=== PATIENT | male | born 1980 | race Two or more races ===

== ENCOUNTER 2019-11-29 07:40 | Outpatient (REF) | payer BC, SELFPAY ==
[2019-11-29 13:55] LABS: Anion Gap 8.7 mmol/L (3-11); BUN 20 mg/dL (7-18); CO2 27.3 mmol/L (21.0-32.0); Calculated LDL 172 mg/dL (<100); Chloride 104 mmol/L (98-107); Cholesterol 242 mg/dL (<200); Glucose 110 mg/dL (74-106); HDL Cholesterol 40 mg/dL (40-60); Potassium 4.7 mmol/L (3.5-5.1); Sodium 140 mmol/L (136-145); Triglyceride 150 mg/dL (<150)
== END 2019-11-29 08:00 ==
LOC: NCHCN 07:40
PROVIDERS: PCP Family Medicine; Visit Provider Nurse Practitioner Family
DX: F32.9 Major depressive disorder, single episode, unspecified (principal); R73.9 Hyperglycemia, unspecified; E78.5 Hyperlipidemia, unspecified
CPT/HCPCS: 80048; 80061

== ENCOUNTER 2020-12-04 08:15 | Outpatient (REF) | payer BC, SELFPAY ==
[2020-12-04 12:57] LABS: Hemoglobin A1C 5.5 % (<5.7)
[2020-12-04 13:05] LABS: BUN 17 mg/dL (7-18); Calcium 8.5 mg/dL (8.5-10.1); Calculated LDL 149 mg/dL (<100); Chloride 102 mmol/L (98-107); Cholesterol 237 mg/dL (<200); Glucose 103 mg/dL (74-106); HDL Cholesterol 34 mg/dL (40-60); Potassium 4.3 mmol/L (3.5-5.1); Sodium 137 mmol/L (136-145); Triglyceride 274 mg/dL (<150)
== END 2020-12-04 08:16 | disposition home or self-care (01) ==
LOC: NCHCN 08:15
PROVIDERS: PCP Family Medicine; Visit Provider Physician Assistant
DX: Z00.00 Encounter for general adult medical examination without abnormal findings (principal); R73.03 Prediabetes; E78.5 Hyperlipidemia, unspecified
CPT/HCPCS: 80048; 80061; 83036

== ENCOUNTER 2021-12-17 16:33 | Outpatient (REF) | payer BC, SELFPAY ==
[2021-12-17 15:30] LABS: Hemoglobin A1C 5.5 % (<5.7)
[2021-12-17 15:36] LABS: Anion Gap 10.8 mmol/L (3-11); BUN 13 mg/dL (7-18); CO2 25.2 mmol/L (21.0-32.0); CREATININE 1.1 mg/dL (0.70-1.30); Calculated LDL 217 mg/dL (<100); Chloride 102 mmol/L (98-107); Cholesterol 286 mg/dL (<200); Glucose 108 mg/dL (74-106); HDL Cholesterol 42 mg/dL (40-60); Potassium 4.3 mmol/L (3.5-5.1); Sodium 138 mmol/L (136-145); Triglyceride 138 mg/dL (<150)
== END 2021-12-17 16:34 | disposition home or self-care (01) ==
LOC: NCHCN 16:33
PROVIDERS: PCP Family Medicine; Visit Provider Physician Assistant
DX: Z00.00 Encounter for general adult medical examination without abnormal findings (principal); R73.03 Prediabetes; E78.5 Hyperlipidemia, unspecified
CPT/HCPCS: 80048; 80061; 83036

== ENCOUNTER 2022-06-20 13:06 | Outpatient (REF) | payer OTHER, SELFPAY ==
[2022-06-20 15:15] LABS: Calculated LDL 98 mg/dL (<100); Cholesterol 157 mg/dL (<200); HDL Cholesterol 41 mg/dL (40-60); Triglyceride 93 mg/dL (<150)
[2022-06-20 15:42] LABS: Hemoglobin A1C 5.5 % (<5.7)
== END 2022-06-20 13:07 | disposition home or self-care (01) ==
LOC: NCHCN 13:06
PROVIDERS: PCP Family Medicine; Visit Provider Physician Assistant
DX: E78.5 Hyperlipidemia, unspecified (principal); R73.03 Prediabetes
CPT/HCPCS: 80061; 83036

== ENCOUNTER 2022-12-23 15:06 | Outpatient (REF) | payer OTHER, SELFPAY ==
[2022-12-23 17:20] LABS: ALT 94 U/L (16-63); AST 42 U/L (15-37); Albumin 4.2 g/dL (3.4-5.0); Alkaline Phosphatase 59 U/L (46-116); Anion Gap 6.6 mmol/L (3-11); BUN 13 mg/dL (7-18); Bilirubin, Total 0.6 mg/dL (0.2-1.0); CO2 29.4 mmol/L (21.0-32.0); CREATININE 1.1 mg/dL (0.70-1.30); Calcium 8.8 mg/dL (8.5-10.1); Calculated LDL 130 mg/dL (<100); Chloride 102 mmol/L (98-107); Cholesterol 201 mg/dL (<200); Estimated GFR 85.42 (mL/min/1.73m2); Glucose 104 mg/dL (74-106); HDL Cholesterol 43 mg/dL (40-60); Potassium 4.2 mmol/L (3.5-5.1); Sodium 138 mmol/L (136-145); Total Protein 7.6 g/dL (6.4-8.2); Triglyceride 142 mg/dL (<150)
== END 2022-12-23 15:07 | disposition home or self-care (01) ==
LOC: NCHCN 15:06
PROVIDERS: PCP Family Medicine; Visit Provider Physician Assistant
DX: E78.5 Hyperlipidemia, unspecified (principal)
CPT/HCPCS: 80053; 80061

== ENCOUNTER 2023-08-04 09:10 | Outpatient (REF) | payer OTHER, SELFPAY ==
[2023-08-04 15:35] LABS: ALT 57 U/L (16-63); AST 20 U/L (15-37); Albumin 3.9 g/dL (3.4-5.0); Alkaline Phosphatase 63 U/L (46-116); Anion Gap 6.3 mmol/L (3-11); BUN 13 mg/dL (7-18); Bilirubin, Total 0.5 mg/dL (0.2-1.0); CO2 29.7 mmol/L (21.0-32.0); Calcium 8.6 mg/dL (8.5-10.1); Calculated LDL 109 mg/dL (<100); Chloride 102 mmol/L (98-107); Cholesterol 175 mg/dL (<200); Estimated GFR 95.77 (mL/min/1.73m2); Glucose 101 mg/dL (74-106); HDL Cholesterol 43 mg/dL (40-60); Sodium 138 mmol/L (136-145); Total Protein 7.2 g/dL (6.4-8.2); Triglyceride 119 mg/dL (<150)
== END 2023-08-04 09:11 | disposition home or self-care (01) ==
LOC: NCHCN 09:10
PROVIDERS: PCP Family Medicine; Visit Provider Physician Assistant
DX: E78.5 Hyperlipidemia, unspecified (principal); R73.03 Prediabetes
CPT/HCPCS: 80053; 80061

== ENCOUNTER 2024-04-16 03:27 | Outpatient (CLI) | payer OTHER, SELFPAY ==
[2024-04-16 08:27] LABS: ALT 83 U/L (16-63); AST 41 U/L (15-37); Albumin 4.1 g/dL (3.4-5.0); Alkaline Phosphatase 63 U/L (46-116); Anion Gap 8.1 mmol/L (3-11); BUN 19 mg/dL (7-18); Bilirubin, Total 0.51 mg/dL (0.2-1.0); CO2 28.9 mmol/L (21.0-32.0); CREATININE 1.3 mg/dL (0.70-1.30); Calcium 8.9 mg/dL (8.5-10.1); Calculated LDL 119 mg/dL (<100); Chloride 102 mmol/L (98-107); Cholesterol 201 mg/dL (<200); Estimated GFR 69.47 (mL/min/1.73m2); Glucose 102 mg/dL (74-106); HDL Cholesterol 46 mg/dL (40-60); Potassium 4.2 mmol/L (3.5-5.1); Sodium 139 mmol/L (136-145); Triglyceride 184 mg/dL (<150)
== END 2024-04-16 03:28 | disposition home or self-care (01) ==
LOC: LBO 03:27
PROVIDERS: PCP Family Medicine; Visit Provider Physician Assistant
DX: R03.0 Elevated blood-pressure reading, without diagnosis of hypertension (principal); E78.5 Hyperlipidemia, unspecified
CPT/HCPCS: 36415; 80053; 80061

== ENCOUNTER 2024-10-21 03:42 | Outpatient (CLI) | payer OTHER, SELFPAY ==
[2024-10-21 08:12] LABS: Hemoglobin A1C 5.5 % (<5.7)
[2024-10-21 08:35] LABS: ALT 59 U/L (16-63); AST 26 U/L (15-37); Albumin 3.9 g/dL (3.4-5.0); Alkaline Phosphatase 69 U/L (46-116); Anion Gap 8.3 mmol/L (3-11); BUN 14 mg/dL (7-18); Bilirubin, Total 0.5 mg/dL (0.2-1.0); CO2 28.7 mmol/L (21.0-32.0); Calcium 8.6 mg/dL (8.5-10.1); Calculated LDL 103 mg/dL (<100); Chloride 104 mmol/L (98-107); Cholesterol 173 mg/dL (<200); Estimated GFR 95.18 (mL/min/1.73m2); Glucose 105 mg/dL (74-106); HDL Cholesterol 47 mg/dL (>or=40); Sodium 141 mmol/L (136-145); Total Protein 7.5 g/dL (6.4-8.2); Triglyceride 117 mg/dL (<150)
== END 2024-10-21 03:43 | disposition home or self-care (01) ==
LOC: LBO 03:42
PROVIDERS: PCP Family Medicine; Visit Provider Physician Assistant
DX: R73.03 Prediabetes (principal); E78.5 Hyperlipidemia, unspecified
CPT/HCPCS: 36415; 80053; 80061; 83036

== ENCOUNTER 2025-02-19 08:53 | Emergency (ER) | payer OTHER, SELFPAY ==
[2025-02-19 08:57] VITALS: BP 162/94; PULSE 79; RESP 16; TEMP 36.3; O2SAT 98
[2025-02-19] MEDS: Lidocaine/Epinephri/Tetracaine Topical Gel 3 ML (09:15)
--- NOTE | 2025-02-19 09:16 | W.ED.GENAD ---
Discharge Plan Disposition Patient Disposition: Home Condition: Good Discharge Details Clinical Impression: Lacerations of multiple sites of right leg Primary Care Provider: Leon Mccrary ED Provider: Britt Yeager Home Meds and New Rx's Prescriptions: Continued atorvastatin 40 mg tablet 40 mg PO DAILY citalopram 40 mg tablet 40 mg PO DAILY Discharge Instructions Additional Instructions: Please return to care to have your sutures removed in 7 to 10 days. You may have this done at your primary care provider's office or here in the emergency department. Your last tetanus was in 2022. I recommend that you use a thin layer bacitracin and a nonstick bandage, followed by Zana wrap to help decrease flexion in your knee. Flexing your knee increases the pressure on the skin, and may cause the wound to come apart. You may use Tylenol or ibuprofen as needed for discomfort. Return to care immediately if you notice any signs of infection such as redness, swelling, pus drainage, foul odor, increasing pain, swelling. Referrals: Leon Mccrary [Primary Care Provider, Medicine] [facility] General Date/Time Provider Initiated Documentation: 02/19/25 08:55. HPI Narrative: Jose is a 44-year-old male presents to the emergency department today for evaluation of right leg lacerations. He reports that someone was working with a chainsaw cutting trees next to him when he turned off a chainsaw and brought it down, superficially cutting Tio's leg. He denies other injuries. Is able to fully extend and bend the leg. No distal numbness/tingling. Bleeding able to be well-controlled after gauze. He attempted to wipe away any debris's after incident. Denies significant past medical history. Physical exam remarkable for 3 linear superficial lacerations to the anterior aspect of the right leg just distal to the knee. Largest one is approximately 3 cm, slightly gaping. There are 2 other linear lacerations, 1 cm in length and 2 cm in length respectively. Full painless range of motion to leg, full flexion and extension. Distal sensation intact. Normal gait. I did review medical records on [facility], last tetanus 2022. History and presentation consistent with uncomplicated laceration. X-ray obtained to rule out foreign bodies. Presentation not consistent with extension into the joint, as lacerations are superficial. No red flags concerning for neurovascular compromise I independently interpreted the following tests: Right knee x-ray, no bony abnormality or foreign bodies noted. This was confirmed by radiology While in the emergency department, Tio received LET for topical anesthetic. Wound was explored to the base in a bloodless field (does not extend into muscle layer, is superficial), no foreign bodies visualized. Wound is extensively irrigated with tap water and antisepsis with chlorhexidine wound wash was performed. Wound was cleansed with 7 simple interrupted sutures and 3 horizontal mattress sutures, 4-0 Ethilon. Patient tolerated procedure well. A 6 inch Zana wrap was applied after wound was dressed. Reviewed discharge instructions with patient, including symptomatic management, suture removal, and red flags indicating need for return to emergency care Related Data Home Medications ?Medication ?Instructions ?Recorded ?Confirmed atorvastatin 40 mg tablet 40 mg PO DAILY 12/17/24 citalopram 40 mg tablet 40 mg PO DAILY 12/17/24 Allergies Allergy/AdvReac Type Severity Reaction Status Date / Time No Known Allergies Allergy Verified 12/17/24 08:14 General Stated Complaint: Laceration FADIA: 4 Exam Const General: cooperative, healthy appearing, comfortable, no acute distress, well developed and well groomed Resp Effort & Inspection: normal respiratory effort and able to speak in complete sentences Skin Rashes: no rashes Trauma: laceration (multiple, R knee) Other: Neuro General: patient alert, patient oriented x3, gait normal, tone normal, moves all extremities and no focal motor deficits Motor: muscle tone normal throughout and strength 5/5 throughout Sensory Exam: no sensory deficits noted Course Vital Signs Vital signs: Vital Signs Temperature 36.3 C L 02/19/25 08:57 Pulse 79 02/19/25 08:57 Respiratory Rate 16 02/19/25 08:57 Blood Pressure 162/94 H 02/19/25 08:57 Pulse Oximetry 98 02/19/25 08:57 Temperature 36.3 C L 02/19/25 08:57 Temperature Source Tympanic 02/19/25 08:57 Pulse 79 02/19/25 08:57 Respiratory Rate 16 02/19/25 08:57 Blood Pressure 162/94 H 02/19/25 08:57 Blood Pressure Position Sitting 02/19/25 08:57 Pulse Oximetry 98 02/19/25 08:57 Oxygen Delivery Method Room Air 02/19/25 08:57 Oxygen Flow Rate 0 02/19/25 08:57 Procedure Laceration Laceration 1: Patient Consented: Verbally Site: lower extremity Side (If applicable): right Description: linear Depth: simple, single layer Local anesthetic: Lidocaine 2% and with Epi Pre-repair:: wound explored, irrigated extensively and deep structures intact Skin layer closed with: nylon Number of sutures:: 10 Technique: horizontal mattress (3 (in 3 cm laceration)) and simple, interrupted (3 in 3 cm laceration, 3 in 2 cm laceration, 1 in 1 cm laceration) Procedure Description/Note: edges well approximated Medical Decision Making Imaging Data Radiologic Study: Radiologist's impression: Exam(s) XR KNEE RT 4V AP,LAT,RACHEL,PAT EXAM: XR KNEE RT 4V AP,LAT,RACHEL,PAT CLINICAL HISTORY: chainsaw, laceration, r/o FB. TECHNIQUE: 2D digital imaging was performed of the right knee. Five views obtained. Merchant, AP, lateral and PA tunnel views were obtained. COMPARISON: No exams were available for comparison FINDINGS: BONES: No acute fracture is present. No bony destructive lesion is seen. JOINTS: The knee is normally aligned. No joint effusion is seen. SOFT TISSUE: There is a small amount of air in the soft tissues lateral to the joint. No radiopaque foreign bodies are present. IMPRESSION: 1. There is no acute fracture or dislocation. There is no radiopaque foreign body present. 2. Small amount of air in the soft tissues lateral to the joint. PFSH All Active Problems (Updated 02/19/25 @ 10:29 by Britt Rodriguez) Lacerations of multiple sites of right leg (Acute) Hyperlipidemia (Acute) Vitamin D deficiency (Acute) Medical History (Updated 02/19/25 @ 10:29 by Britt Rodriguez) Elevated blood pressure reading Prediabetes Major depression, single episode Social History Smoking/Tobacco Use Status: Never Smoking risk assessment performed?: Yes Alcohol Intake: current Alcohol Intake frequency: 0-2 drinks per day Alcohol type: beer Drug use: Never Substance use type: does not use
--- NOTE | 2025-02-19 09:58 | DI.RAD_ITS ---
Exam(s) XR KNEE RT 4V AP,LAT,RACHEL,PAT EXAM: XR KNEE RT 4V AP,LAT,RACHEL,PAT CLINICAL HISTORY: chainsaw, laceration, r/o FB. TECHNIQUE: 2D digital imaging was performed of the right knee. Five views obtained. Merchant, AP, lateral and PA tunnel views were obtained. COMPARISON: No exams were available for comparison FINDINGS: BONES: No acute fracture is present. No bony destructive lesion is seen. JOINTS: The knee is normally aligned. No joint effusion is seen. SOFT TISSUE: There is a small amount of air in the soft tissues lateral to the joint. No radiopaque foreign bodies are present. IMPRESSION: 1. There is no acute fracture or dislocation. There is no radiopaque foreign body present. 2. Small amount of air in the soft tissues lateral to the joint. DATA REPOSITORY: RADIATION DOSE DELIVERED:
== END 2025-02-19 10:34 | disposition home or self-care (01) ==
LOC: ER 10:39
PROVIDERS: Emergency Provider Nurse Practitioner Family; PCP Physician Assistant
DX: S81.811A Laceration without foreign body, right lower leg, initial encounter (principal); W31.2XXA Contact with powered woodworking and forming machines, initial encounter; Y99.0 Civilian activity done for income or pay
CPT/HCPCS: 99283 ×2; 12002; 73564; J2004

== ENCOUNTER 2025-02-28 13:04 | Emergency (ER) | payer SELFPAY ==
[2025-02-28 13:17] VITALS: BP 147/101; PULSE 77; RESP 15; TEMP 36.6; O2SAT 96
--- NOTE | 2025-02-28 14:13 | W.ED.GENAD ---
Discharge Plan Disposition Patient Disposition: Home Condition: Stable Discharge Details Clinical Impression: Visit for suture removal Primary Care Provider: Leon Mccrary ED Provider: Dimas Mann Home Meds and New Rx's Prescriptions: No Action bisacodyl [Dulcolax (bisacodyl)] 5 mg tablet,delayed release (DR/EC) 5 mg PO ONCE Qty: 4 0RF Rx Instructions: Take per colonoscopy instructions provided by ordering providers office polyethylene glycol 3350 17 gram/dose powder 17 g PO ONCE Qty: 238 0RF Rx Instructions: Take per colonoscopy instructions provided by ordering providers office atorvastatin 40 mg tablet 40 mg PO DAILY citalopram 40 mg tablet 40 mg PO DAILY Discharge Instructions Instructions: Stitches Removal Additional Instructions: Medication reconciliation was not performed today. Please take your medications as prescribed. Keep wound protected. Monitor for signs of infection including increased warmth, swelling, drainage, pain. Seek care immediately for any worsening or new concerning symptoms. Discharge Data Discharge Date/Time-TO BE ENTERED AT DEPARTURE: 02/28/25 14:21 HPI General Mode of arrival: ambulatory. Date/Time Provider Initiated Documentation: 02/28/25 13:22. Limitations to Documentation: no limitations. Information obtained by: patient. HPI Narrative: Patient here for suture removal. Sutures were placed in the emergency department on 02/19/2025. Wound has been healing well without complication. Patient has no other concerns. Related Data Home Medications ?Medication ?Instructions ?Recorded ?Confirmed atorvastatin 40 mg tablet 40 mg PO DAILY 12/17/24 02/28/25 citalopram 40 mg tablet 40 mg PO DAILY 12/17/24 02/28/25 bisacodyl 5 mg tablet,delayed 5 mg PO ONCE #4 tabs 02/27/25 02/28/25 release (Dulcolax (bisacodyl)) polyethylene glycol 3350 17 17 g PO ONCE #238 grams 02/27/25 02/28/25 gram/dose oral powder Previous Rx's ?Medication ?Instructions ?Recorded bisacodyl 5 mg tablet,delayed 5 mg PO ONCE #4 tabs 02/27/25 release (Dulcolax (bisacodyl)) polyethylene glycol 3350 17 17 g PO ONCE #238 grams 02/27/25 gram/dose oral powder Allergies Allergy/AdvReac Type Severity Reaction Status Date / Time No Known Allergies Allergy Verified 12/17/24 08:14 General Stated Complaint: SutureRem FADIA: 4 Exam Extrem Other: Right lower extremity wounds healing without signs of infection. Course Vital Signs Vital signs: Vital Signs Temperature 36.6 C 02/28/25 13:17 Pulse 77 02/28/25 13:17 Respiratory Rate 15 02/28/25 13:17 Blood Pressure 147/101 H 02/28/25 13:17 Pulse Oximetry 96 02/28/25 13:17 Temperature 36.6 C 02/28/25 13:17 Temperature Source Oral 02/28/25 13:17 Pulse 77 02/28/25 13:17 Respiratory Rate 15 02/28/25 13:17 Blood Pressure 147/101 H 02/28/25 13:17 Blood Pressure Position Sitting 02/28/25 13:17 Pulse Oximetry 96 02/28/25 13:17 Oxygen Delivery Method Room Air 02/28/25 13:17 Oxygen Flow Rate 0 02/28/25 13:17 Medical Decision Making All sutures removed from wound. No dehiscence. Patient tolerated well. Usual and customary discharge instructions were reviewed with the patient. PFSH All Active Problems (Updated 02/28/25 @ 14:14 by Dimas Mann MD) Visit for suture removal (Acute) Lacerations of multiple sites of right leg (Acute) Hyperlipidemia (Acute) Vitamin D deficiency (Acute) Medical History (Updated 02/28/25 @ 14:14 by Dimas Mann MD) Elevated blood pressure reading Prediabetes Major depression, single episode Social History (Updated 02/28/25 @ 07:57 by JAQUELINE Rojas) Smoking/Tobacco Use Status: Former Tobacco Use Smoking risk assessment performed?: Yes Alcohol Intake: current Alcohol Intake frequency: 3 or more drinks per day Alcohol type: beer Drug use: Never Substance use type: does not use
== END 2025-02-28 14:21 | disposition home or self-care (01) ==
PROVIDERS: Emergency Provider Student in an Organized Health Care Education/Training Program; PCP Physician Assistant
DX: Z48.02 Encounter for removal of sutures (principal)

== ENCOUNTER 2025-03-14 10:51 | Day surgery (SDC) | payer BC, SELFPAY ==
--- NOTE | 2025-03-13 19:14 | W.ANESPRE ---
General Info Date of Service Date Performed: 03/14/25 Height: 5 ft 6 in Weight: 99.79 kg Body Mass Index (BMI): 35.5 Surgical Procedure: Operation Date: 03/14/25 13:10 Proposed Procedure Side Surgeon p Colonoscopy Jamil Bean MD s Possible Hemorrhoid Banding Jamil Bean MD Meds Allergies and Home Medications Allergies Allergy/AdvReac Type Severity Reaction Status Date / Time No Known Allergies Allergy Verified 03/14/25 11:39 Home Medication ?Medication ?Instructions ?Recorded atorvastatin 40 mg tablet 40 mg PO DAILY 12/17/24 citalopram 40 mg tablet 40 mg PO DAILY 12/17/24 Current Visit Medications: Current Medications Generic Name Dose Route Start Last Admin Trade Name Freq PRN Reason Stop Dose Admin Ringer's Solution 1,000 mls @ 80 mls/hr 03/14/25 06:00 IV 03/14/25 23:59 INFUSION ELEUTERIO IV Miscellaneous Supplies 1 each 03/14/25 06:00 Iv Access IV 03/14/25 23:59 DIRECTED ELEUTERIO Sodium Chloride 0 ml 03/14/25 06:00 Normal Saline Flush 10 Ml Syr IV 03/14/25 23:59 PRN PRN Sodium Chloride 0 ml 03/14/25 06:00 Normal Saline 10 Ml Vial IJ 03/14/25 23:59 DIRECTED PRN Sterile Water 0 ml 03/14/25 06:00 Water,Injection,Sterile 10 Ml Vial IJ 03/14/25 23:59 DIRECTED PRN PFSH Active Problems Active Problems: Problem Status Onset Code Visit for suture removal Acute Z48.02 Lacerations of multiple sites of right leg Acute S81.811A Hyperlipidemia Acute E78.5 Vitamin D deficiency Acute E55.9 Medical History Medical History Elevated blood pressure reading Prediabetes Major depression, single episode Surgical History Surgical History H/O wisdom tooth extraction Tobacco Smoking/Tobacco Use Status: Former Tobacco Use Alcohol Alcohol Intake: current Alcohol intake frequency: 3 or more drinks per day Alcohol type: beer Substance Use Substance use: Never Substance use type: does not use Vital Signs and Lab Results Vital Signs Most Recent Vital Signs in EMR: Temp Pulse Resp BP Pulse Ox 36.2 C L 84 19 144/108 H 99 03/14/25 11:37 03/14/25 11:37 03/14/25 11:37 03/14/25 11:37 03/14/25 11:37 Anesthesia Assessment and Plan Anesthesia History Personal History: No History of Anesthesia Complications Family History: No Family History of Anesthesia Complications Exercise Tolerance Exercise Tolerance: Metabolic Equivalents>4 Pertinent Negatives Pertinent Negatives: No Symptoms of GERD Cardiac & Pulmonary Exam Cardiac Exam: Normal S1/S2 Heart Sounds Pulmonary Exam: Clear Bilateral Breath Sounds Implantable Cardiac Device Does patient have a Pacemaker or an ICD?: No Airway Exam Known Difficult Airway: No Mallampati Class: 2 Mouth Opening: Normal (> 3cm) Thyromental Distance: Greater than 3 cm Facial Hair: Full Nascimento Neck Range of Motion: Full ROM Neck Circumference: Normal Teeth Condition: Normal Dentition ASA Classification ASA Score: ASA 2 Emergency Case?: No NPO Status NPO Status: NPO Clears >2 hours, Solids >8 hours Anesthesia Plan Resuscitation Status: Full Code Anesthesia Technique: General Anesthesia Airway Planned: Natural Airway Monitors Used: Standard Monitors Preoperative Comments:: 44 yo for colo. Sig PMHx: PreDM, depression. former smoker, daily EtOH.
--- NOTE | 2025-03-13 20:19 | PDOC.DSDIS_ITS ---
Date of service: 03/14/25 Discharge Plan Disposition Patient Disposition: Home Condition: Good Discharge Details Reason For Visit: screening colonocsopy Attending Provider: Jamil Bean Primary Care Provider: Leon Mccrary Home Meds and New Rx's Prescriptions: Continued atorvastatin 40 mg tablet 40 mg PO DAILY citalopram 40 mg tablet 40 mg PO DAILY Discontinued bisacodyl [Dulcolax (bisacodyl)] 5 mg tablet,delayed release (DR/EC) 5 mg PO ONCE Qty: 4 0RF Rx Instructions: Take per colonoscopy instructions provided by ordering providers office polyethylene glycol 3350 17 gram/dose powder 17 g PO ONCE Qty: 238 0RF Rx Instructions: Take per colonoscopy instructions provided by ordering providers office Discharge Instructions Instructions: Hemorrhoids, Hemorrhoidectomy Additional Instructions: Tio, it was nice meeting you today, and I hope you make a quick recovery after the procedure. Things went very smoothly. Your prep was great, we could see everything fine. There are no tumors or polyps or anything in particular to worry about within your colon. I did not perform hemorrhoid banding today. The majority of your hemorrhoid is an external component, and banding this is extremely painful. I will attach some basic information here about typical approaches to hemorrhoids as well as hemorrhoidectomy. If this is really problematic, as I mentioned beforehand, we could formally excise it in the operating room with a nerve block to help with postoperative pain. Generally, however, many patients can manage her hemorrhoids without any type of surgical intervention. Most of my patients with hemorrhoid disease seem to do best by adding fiber to their diet. Most [place] citizens eat somewhere between 8 and 15 g of fiber per day. The recommended dosing of dietary fiber is closer to 20 to 30 g/day. If you like to try to keep track of your average daily intake, fiber information is included on all nutritional labels. However, most patients have a hard time keeping track of this. And since there is really no upper limit to how much fiber you can consume, most prefer to just supplement without much attention to the dosing. Fiber supplements are available in a number of different forms. Metamucil is probably the most popular 1, but any product that contains psyllium will work just as well. If you do elect to include this in your diet, just be careful starting it up. Most patients will find a little bloating at first, so small doses increased over time tend to be more beneficial. With an otherwise negative colonoscopy today, you should consider another screening colonoscopy in 10 years. If your hemorrhoids continue to give you trouble, please let me know and we can discuss other options in the office a t any time. 1. If tolerated, consume a soft, low fiber diet for 1-2 days. 2. Do not drive, drink alcohol, operate machinery, make critical decisions, or do activities that require coordination or balance for 24 hours. 3. Because air was put into your colon during the procedure, expelling air from your rectum (passing gas or farting) is normal. 4. You may not have a bowel movement for 1-3 days because of the colonoscopy prep. This is normal. 5. Go directly to the emergency room if you notice any of the following: Develop chills (warm to touch), or if you have a thermometer and your temperature is above 101 Difficulty breathing or difficultly swallowing Persistent vomiting Severe abdominal pain, other than gas cramps Severe chest pain Black, tarry stools Any bleeding ? exceeding one tablespoon 6. Call your physician if the site where your intravenous was started becomes red, swollen, painful, and warm to touch. 7. Your physician has reviewed your pre-procedure medications. Please continue to take those medications as previously ordered. You will be given specific information/education regarding any changes to your medications before leaving. Stand Alone Forms: Anesthesia Discharge Inst., Colonoscopy Post Instructions, Ren Sagastume (DSU) Activity:: Activity as Tolerated Diet:: As Tolerated Discharge Orders Discharge Orders: Discharge Order (Routine); Ordered 03/13/25 Ordered By: Jamil Bean DS: Diagnosis Discharge Diagnosis (1) Encounter for screening colonoscopy: Status: Acute Asessment and Plan: Hemorrhoids otherwise negative screening colonoscopy; follow-up in 10 years for next colonoscopy
--- NOTE | 2025-03-13 20:21 | COLE_ITS ---
Date of service: 03/14/25 Time of Service: 13:41 Colonoscopy Report Date of procedure: 03/14/25 Pre-op diagnosis general: screening colonoscopy Post-op diagnosis procedure note: other (External hemorrhoids; otherwise negative colonoscopy) Procedure: colonoscopy Surgeon: Jamil Bean Anesthesia Type: General:No Airway Estimated blood loss (mL): 0 Pathology: none sent Complications: None Disposition: same day Indications: Tio is a 44 year old man who needs a screening colonoscopy Prep: Miralax/Dulcolax Procedure Start Time: 13:19 Procedure End Time: 13:31 Retraction Time: 7 Findings: Right posterior column external hemorrhoid Procedure Description: After the induction of monitored anesthetic care, and with the patient in left lateral decubitus position, I began by performing an external anorectal exam.? Perineum and skin were normal, as was the anal verge.? There is an external hemorrhoid arising from the right posterior column. It is not thrombosed. I do not see any fissures.? Next, I performed a digital rectal exam.? This was normal.? Next, I advanced a colonoscope into the rectal vault.? I performed retroflexion.? This appeared normal. Using irrigation, I then advanced the colonoscope beyond the rectal folds and into the sigmoid colon before advancing towards the cecum.? The quality of the prep was excellent.? The scope was noted to be in the cecum by identification of the ileocecal valve and appendiceal orifice.? I then began withdrawing the colonoscope using repeated irrigation as necessary for full evaluation of the colonic mucosa. ?Once the scope was withdrawn to the level of the rectum, great care was taken to examine portions of the rectal folds.? I saw no signs of tumors, polyps, or any other worrisome pathology. The scope was then withdrawn, and given the concern for hemorrhoids, I did perform another external exam with lighted anoscopy. Again seen is a large hemorrhoid in the right posterior column. With minimal internal component, there was no indication for hemorrhoid banding. The anoscope was then removed, and Jose was allowed to awaken from the anesthetic, and transferred to the recovery unit. The findings and instructions were shared with the patient prior to discharge. [employer] Bowel Prep [employer] Bowel Prep Right Colon: 3 Left Colon: 3 Transverse Colon: 3 Total Score: 9
[2025-03-14 11:37] VITALS: BP 144/108; PULSE 84; RESP 19; TEMP 36.2; O2SAT 99
[2025-03-14] MEDS: Lactated Ringers 1,000 ML 80 ML IV (12:02)
[2025-03-14 12:36] VITALS: BMI 35.5
[2025-03-14 13:40] VITALS: PULSE 84; RESP 16; TEMP 36.3; O2SAT 95
--- NOTE | 2025-03-14 13:45 | W.ANESPOSTOP ---
Postoperative Evaluation Date, Time and Location Date Performed: 03/14/25 Time Performed: 13:45 Patient Location: Day Surgery Unit Vital Signs Most Recent Imported Vital Signs: Most Recent Vital Signs Temp Pulse Resp BP Pulse Ox 36.3 C L 84 16 144/108 H 95 03/14/25 13:40 03/14/25 13:40 03/14/25 13:40 03/14/25 11:37 03/14/25 13:40 Pain Score Most Recent Pain Score: Most Recent Pain Score Pain Level 0 03/14/25 13:40 Assessment Mental Status: Awake (Alert & Oriented to Patient Baseline) Airway and Respiratory Function: Patent airway with normal (patient baseline) respiratory exam Cardiovascular Function: Hemodynamically Stable Hydration Status: Adequately Hydrated Nausea & Vomiting: No Nausea or Vomiting Pain: Pt. Denies Any Pain Peripheral Nerve Block: Patient did not receive a nerve block
[2025-03-14 14:10] VITALS: BP 119/92; PULSE 69; RESP 14; TEMP 36.4; O2SAT 94
== END 2025-03-14 14:11 | disposition home or self-care (01) ==
LOC: SUR 10:53
PROVIDERS: PCP Physician Assistant; Visit Provider Surgery
PROC: 0DJD8ZZ Inspection of Lower Intestinal Tract, Via Natural or Artificial Opening Endoscopic (ICD-10-PCS; CPT 45378; principal; 2025-03-14 13:00)
DX: Z12.11 Encounter for screening for malignant neoplasm of colon (principal); K64.4 Residual hemorrhoidal skin tags
CPT/HCPCS: 45378; J2704

== ENCOUNTER 2025-05-02 04:12 | Outpatient (CLI) | payer BC, SELFPAY ==
[2025-05-02 09:09] LABS: ALT 64 U/L (16-63); AST 30 U/L (15-37); Albumin 4.1 g/dL (3.4-5.0); Alkaline Phosphatase 65 U/L (46-116); Anion Gap 8.7 mmol/L (3-11); BUN 13 mg/dL (7-18); Bilirubin, Total 0.7 mg/dL (0.2-1.0); CO2 28.3 mmol/L (21.0-32.0); Calcium 8.7 mg/dL (8.5-10.1); Calculated LDL 116 mg/dL (<100); Chloride 98 mmol/L (98-107); Cholesterol 187 mg/dL (<200); Estimated GFR 94.59 (mL/min/1.73m2); Glucose 101 mg/dL (74-106); HDL Cholesterol 44 mg/dL (>or=40); Potassium 3.8 mmol/L (3.5-5.1); Sodium 135 mmol/L (136-145); Total Protein 7.6 g/dL (6.4-8.2); Triglyceride 138 mg/dL (<150)
== END 2025-05-02 04:13 | disposition home or self-care (01) ==
PROVIDERS: PCP Physician Assistant; Visit Provider Physician Assistant
DX: E78.5 Hyperlipidemia, unspecified (principal)
CPT/HCPCS: 36415; 80053; 80061